=== PATIENT | male | born 1975 | race Hispanic/Latino ===

== ENCOUNTER → 2018-07-16 | Outpatient (CLI) | payer BC ==
[~2018-07-16] MED LIST: ALPR0.5T PO
== END | disposition home or self-care (01) ==
LOC: RAH 07:32
PROVIDERS: ATTEND Internal Medicine
DX: N28.1 Cyst of kidney, acquired (principal); K76.0 Fatty (change of) liver, not elsewhere classified; N32.89 Other specified disorders of bladder
CPT/HCPCS: 76700; 76856